=== PATIENT | male | born 2000 | race Caucasian/White ===

== ENCOUNTER 2022-09-17 16:29 | Emergency (ER) | payer SELFPAY ==
[~2022-09-17] VITALS: Ht 182.9 cm; Wt 63.5 kg
[~2022-09-17 16:29] MED LIST: AMOX50SU PO; IBUP100S
[2022-09-17] MEDS ORDERED: AMOCLA875 PO (21:47)
== END 2022-09-17 22:05 | disposition home or self-care (01) ==
LOC: ER 16:29
DX: K04.7 Periapical abscess without sinus (principal); F17.210 Nicotine dependence, cigarettes, uncomplicated; Z91.030 Bee allergy status
CPT/HCPCS: A9270